=== PATIENT | male | born 2000 | race African-American/Black ===

== ENCOUNTER 2019-05-28 02:10 | Emergency (ER) | payer MEDICAID ==
[~2019-05-28] VITALS: Ht 167.6 cm; Wt 83.0 kg
[2019-05-28] MEDS ORDERED: KETOROLAC 60MG/2ML VIAL IM STA (02:45)
[2019-05-28] MEDS ORDERED: FAMOTIDINE 20MG TABLET PO ONE (02:45)
[2019-05-28 05:36] VITALS: BP 120/61
== END 2019-05-28 05:40 | disposition home or self-care (01) ==
LOC: ER 02:10
DX: R07.89 Other chest pain (principal); F12.90 Cannabis use, unspecified, uncomplicated
CPT/HCPCS: 36415; 71045; 84484; 93005; 96372; 99285; J1885